=== PATIENT | female | born 1960 ===

== ENCOUNTER → 2021-02-12 | Outpatient (CLI) | payer BC, OTHER ==
[2021-02-12] VITALS (7 sets, daily range): BP systolic 127–165; BP diastolic 74–86
[~2021-02-12] VITALS: Ht 167.6 cm; Wt 113.4 kg
[~2021-02-12] MED LIST: REGENERON 1200mg/250ml NS 250 ML IV ONE
== END | disposition home or self-care (01) ==
LOC: ER 15:00
PROVIDERS: ATTEND Internal Medicine
DX: U07.1 COVID-19 (principal)
CPT/HCPCS: J7050; M0243; Q0244